=== PATIENT | female | born 1950 | race Caucasian/White ===

== ENCOUNTER → 2018-01-15 | Outpatient (CLI) | payer OTHER ==
[~2018-01-15] MED LIST: CETI10 PO
== END | disposition home or self-care (01) ==
LOC: PLD 11:05 → LAB SHORT 11:05
DX: D48.5 Neoplasm of uncertain behavior of skin (principal)
CPT/HCPCS: 88305

== ENCOUNTER 2018-06-20 16:30 | Emergency (ER) | payer OTHER ==
[~2018-06-20] VITALS: Ht 160 cm; Wt 104.3 kg
[2018-06-20 17:33] LABS: BASOPHILS ABSOLUTE AUTO 0.05 K/mm3 (0.00-0.23); BASOPHILS PERCENT AUTO 1 % (0-2); EOSINOPHILS PERCENT AUTO 2 % (0-6); Hematocrit 51.7 % (33.0-51.0); Hemoglobin 16.6 g/dL (11.5-16.0); IMMATURE GRAN ABSOLUTE AUTO 0.06 K/mm3 (0.00-0.10); IMMATURE GRAN PERCENT AUTO 1 % (0-1); LYMPHOCYTES ABSOLUTE AUTO 3.02 K/mm3 (0.84-5.20); LYMPHOCYTES PERCENT AUTO 29 % (21-46); MONOCYTES ABSOLUTE AUTO 0.61 K/mm3 (0.16-1.47); MONOCYTES PERCENT AUTO 6 % (4-13); Mean Corpuscular HGB 29.9 pg (26.0-34.0); Mean Corpuscular HGB Conc 32.1 g/dL (31.5-36.5); Mean Corpuscular Volume 93 fL (80-100); Mean Platelet Volume 8.9 fL (9.1-12.4); NEUTROPHILS ABSOLUTE AUTO 6.49 K/mm3 (1.96-9.15); NEUTROPHILS PERCENT AUTO 62 % (41-73); Platelet Count 245 K/mm3 (150-400); RDW Coefficient Variation 12.5 % (11.7-14.2); Red Blood Cell Count 5.56 M/mm3 (3.80-5.20); White Blood Cell Count 10.43 K/mm3 (4.00-11.30)
[2018-06-20] MEDS ORDERED: GABA400 PO (19:43)
[2018-06-20] MEDS ORDERED: Prozac20 MG (19:43)
[2018-06-20] MEDS ORDERED: CLON.2 PO (19:44)
[2018-06-20] MEDS ORDERED: METF500C PO (19:44)
[2018-06-20] MEDS ORDERED: LISI20 PO (19:44)
[2018-06-20] MEDS ORDERED: TAZTIA XT360 MG PO (19:44)
[2018-06-20] MEDS ORDERED: ALBU90OI6 INH (19:45)
[2018-06-20] MEDS ORDERED: EZET10 PO (19:45)
[2018-06-20] MEDS ORDERED: MODA200 PO (19:45)
[2018-06-20 20:20] LABS: Alanine Aminotransfer (ALT/SGP 31 U/L (12-78); Albumin, Blood 3.4 g/dL (3.4-5.0); Alk Phos 100 U/L (50-136); Anion Gap 8 mmol/L (6-16); Aspartate Aminotrans (AST/SGOT 17 U/L (12-37); Bilirubin, Total 0.4 mg/dL (0.1-1.0); Blood Urea Nitrogen 17 mg/dL (8-24); CO2, Blood 28 mmol/L (21-32); Calcium, Blood 9.5 mg/dL (8.5-10.1); Chloride, Blood 106 mmol/L (98-108); Creatinine, Blood 0.81 mg/dL (0.40-1.00); Globulin, Blood 3.5 g/dL (2.2-4.0); Glomerular Filtration Rate >60 (60-); Glucose, Blood 103 mg/dL (70-99); Sodium, Blood 142 mmol/L (136-145); Total Protein, Blood 6.9 g/dL (6.4-8.2)
[2018-06-20 20:27] LABS: Potassium, Blood 3.8 mmol/L (3.5-5.5)
== END 2018-06-20 20:56 | disposition home or self-care (01) ==
LOC: ER 16:30
PROVIDERS: Physician Assistant
DX: E87.5 Hyperkalemia (principal); D75.89 Other specified diseases of blood and blood-forming organs; Z79.899 Other long term (current) drug therapy; E11.9 Type 2 diabetes mellitus without complications; G35 Multiple sclerosis; Z85.3 Personal history of malignant neoplasm of breast; Z79.84 Long term (current) use of oral hypoglycemic drugs
CPT/HCPCS: 36415; 80053; 85025; 93005; 93010; 99283-25

== ENCOUNTER → 2021-07-04 | Outpatient (CLI) | payer OTHER ==
[~2021-07-04] MED LIST changes: +ALBU90OI6 INH; +CLON.2 PO; +EZET10 PO; +GABA400 PO; +LISI20 PO; +METF500C PO; +MODA200 PO; +Prozac20 MG; +TAZTIA XT360 MG PO
[2021-07-04 10:18] LABS: BASOPHILS ABSOLUTE AUTO 0.04 K/mm3 (0.00-0.23); BASOPHILS PERCENT AUTO 0 % (0-2); EOSINOPHILS ABSOLUTE AUTO 0.13 K/mm3 (0.00-0.68); EOSINOPHILS PERCENT AUTO 1 % (0-6); Hematocrit 51.2 % (33.0-51.0); Hemoglobin 16.8 g/dL (11.5-16.0); IMMATURE GRAN ABSOLUTE AUTO 0.05 K/mm3 (0.00-0.10); IMMATURE GRAN PERCENT AUTO 1 % (0-1); LYMPHOCYTES ABSOLUTE AUTO 1.98 K/mm3 (0.84-5.20); LYMPHOCYTES PERCENT AUTO 22 % (21-46); MONOCYTES ABSOLUTE AUTO 0.54 K/mm3 (0.16-1.47); MONOCYTES PERCENT AUTO 6 % (4-13); Mean Corpuscular HGB 29.4 pg (26.0-34.0); Mean Corpuscular HGB Conc 32.8 g/dL (31.5-36.5); Mean Corpuscular Volume 90 fL (80-100); Mean Platelet Volume 9.1 fL (9.1-12.4); NEUTROPHILS ABSOLUTE AUTO 6.31 K/mm3 (1.96-9.15); NEUTROPHILS PERCENT AUTO 70 % (41-73); Platelet Count 262 K/mm3 (150-400); RDW Coefficient Variation 13.8 % (11.7-14.2); RDW Standard Deviation 45.1 fL (35.1-46.3); Red Blood Cell Count 5.72 M/mm3 (3.80-5.20); White Blood Cell Count 9.05 K/mm3 (4.00-11.30)
[2021-07-04 10:38] LABS: Alanine Aminotransfer (ALT/SGP 16 U/L (12-78); Albumin, Blood 3.7 g/dL (3.4-5.0); Albumin/Globulin Ratio 1.2 (0.8-1.8); Alk Phos 89 U/L (40-126); Anion Gap 10 mmol/L (6-16); Aspartate Aminotrans (AST/SGOT 13 U/L (12-37); Bilirubin, Total 0.5 mg/dL (0.1-1.0); Blood Urea Nitrogen 17 mg/dL (8-24); Bun/Creatinine Ratio 20.2 (12.0-20.0); CO2, Blood 28 mmol/L (21-32); Calcium, Blood 10.2 mg/dL (8.5-10.1); Chloride, Blood 104 mmol/L (98-108); Creatinine, Blood 0.84 mg/dL (0.40-1.00); Globulin, Blood 3.2 g/dL (2.2-4.0); Glomerular Filtration Rate >60 (60-); Glucose, Blood 109 mg/dL (70-99); Potassium, Blood 4.1 mmol/L (3.5-5.5); Sodium, Blood 142 mmol/L (136-145); Thyroid Stimulating Hormone 1.886 uIU/mL (0.360-4.800); Total Protein, Blood 6.9 g/dL (6.4-8.2)
== END | disposition home or self-care (01) ==
LOC: LAB SHORT 10:11
PROVIDERS: Physician Assistant
DX: R53.83 Other fatigue (principal); R77.8 Other specified abnormalities of plasma proteins
CPT/HCPCS: 80053; 84443; 84484; 85025

== ENCOUNTER 2023-06-20 10:41 | Day surgery (SDC) | payer OTHER ==
[~2023-06-20] VITALS: Ht 160 cm; Wt 72.9 kg
[~2023-06-20 10:41] MED LIST changes: +ALBU90OI INH; -ALBU90OI6 INH; +Glucophage 850850 MG PO; -LISI20 PO; -METF500C PO; +Zestril40 MG PO
[2023-06-20] MEDS ORDERED: VITAMIN D31000 UNI1 PO (11:12)
[2023-06-20 12:11] VITALS: BP 163/103
[2023-06-25] MEDS ORDERED: ACET325 PO (10:11)
[2023-06-25] MEDS ORDERED: OYSTER SHELL C500 MG PO (10:14)
[2023-06-25] MEDS ORDERED: [UNRECOGNIZED DRUG - OTHER] PO (10:17)
[2023-06-25] MEDS ORDERED: [UNRECOGNIZED DRUG - OTHER] PO (10:19)
[2023-06-25] MEDS ORDERED: ASCO500 PO (10:24)
[2023-06-25] MEDS ORDERED: VITAMIN E100 UNI1 PO (10:25)
[2023-06-25] MEDS ORDERED: Milk Thistle175 M1 PO (10:25)
[2023-06-25] MEDS ORDERED: PROBIOTIC PO (10:29)
[2023-06-25] MEDS ORDERED: OMEGA-3-FISH O1 EAC3 PO (10:31)
[2023-06-25] MEDS ORDERED: CRANBERRY500 M1 PO (10:31)
== END 2023-06-20 12:45 | disposition home or self-care (01) ==
LOC: ORSCSDS 10:41
PROVIDERS: Ophthalmology
PROC: 08RJ3JZ Replacement of Right Lens with Synthetic Substitute, Percutaneous Approach (ICD-10-PCS; principal; 2023-06-20 12:00)
DX: E11.36 Type 2 diabetes mellitus with diabetic cataract (principal); H25.13 Age-related nuclear cataract, bilateral; J44.9 Chronic obstructive pulmonary disease, unspecified; F17.210 Nicotine dependence, cigarettes, uncomplicated; E78.5 Hyperlipidemia, unspecified; E78.00 Pure hypercholesterolemia, unspecified; Z79.84 Long term (current) use of oral hypoglycemic drugs; E11.22 Type 2 diabetes mellitus with diabetic chronic kidney disease; I12.9 Hypertensive chronic kidney disease with stage 1 through stage 4 chronic kidney disease, or unspecified chronic kidney disease; Z79.899 Other long term (current) drug therapy
CPT/HCPCS: 82947; J2250; J3010; J3301; J7040; V2632

== ENCOUNTER 2023-06-27 10:37 | Day surgery (SDC) | payer OTHER ==
[~2023-06-27] VITALS: Ht 160 cm; Wt 73.8 kg
[~2023-06-27 10:37] MED LIST changes: +ACET325 PO; +ASCO500 PO; +CRANBERRY500 M1 PO; +Milk Thistle175 M1 PO; +OMEGA-3-FISH O1 EAC3 PO; +OYSTER SHELL C500 MG PO; +PROBIOTIC PO; +VITAMIN D31000 UNI1 PO; +VITAMIN E100 UNI1 PO; +[UNRECOGNIZED DRUG - OTHER] PO; +[UNRECOGNIZED DRUG - OTHER] PO
--- NOTE | 2023-06-27 11:40 | NUR ---
06/27/23 1140 Cathi García PROCESTHER: 1133 TIM: 1134
--- NOTE | 2023-06-27 12:52 | NUR ---
06/27/23 1251 SABI GATES PT ADMIT TO SDU. DR. HERNANDEZ DISCUSSED PT VITALS WITH ME. STATES THAT O2 RUNS VERY LOW. 84-92%. STATES THAT PT CAN GO HOME WITH O2 SAT OF 82- 92% PT WAS PLACED ON 10L O2 VIA FACETENT. AFTER ENCOURAGEMENT OF COUGH, PT O2 FINALLY UP TO 95%. PT CURRENT BP IS 200/118. DR. HERNANDEZ SPOKE TO PT ABOUT BP. PT DENIES CHRISTENSEN. SHE DOES SEE FLOATERS BUT THEY ARE NOT NEW. DR. HERNANDEZ STATES THAT PT MAY BE RELEASED WITH BP THIS HIGH. I WILL ALSO SPEAK WITH DTR JOSE MANUEL ABOUT HER BP AND O2 SAT. PT DENIES O2 USE AT HOME. DENIES THAT HER PCP SCARLET LÓPEZ HAS EVER WANTED TO PLACE HER ON O2. PT DOES HAVE HX EMPHASEMIA. PT CONTINUES TO SMOKE. DR. HERNANDEZ HAS REQUESTED THAT I INSTRUCT HER ON THE USE OF INCENTIVE SPIROMOMETER AND GIVE HER A DUONEB TREATMENT. BP NOW 194/109. PT STATES THAT SHE DID TAKE HER BP MED THIS AM. DTR JOSE MANUEL BROUGHT IN AND I SPOKE TO HER ABOUT THE BP AND O2 SAT CONCERNS SHE HAS AGREED TO MAKE SURE HER MOM FOLLOWS UP WITH HER PCP. JOSE MANUEL STATES THAT SHE RECENTLY HAD AN ALLERGIC REACTION TO A LAUNDRY PRODUCT THAT WAS BROUGHT INTO THE HOUSE. SHE STATES THAT THEY DON'T NORMALLY TAKE HER BP BUT THAT IT DOESN'T RUN THIS HIGH. IT IS MOST LIKELY DUE TO THE "SURGERY" THAT HER BP IS ELEVATED. PT O2 SAT DROPPED TO 78% ON RA. PT WAS ON 4L PER NX
[2023-06-27 13:20] VITALS: BP 212/139
== END 2023-06-27 13:30 | disposition home or self-care (01) ==
LOC: ORSCSDS 10:37
PROVIDERS: Ophthalmology
PROC: 08RK3JZ Replacement of Left Lens with Synthetic Substitute, Percutaneous Approach (ICD-10-PCS; principal; 2023-06-27 12:00)
DX: E11.36 Type 2 diabetes mellitus with diabetic cataract (principal); H25.12 Age-related nuclear cataract, left eye; F17.210 Nicotine dependence, cigarettes, uncomplicated; G35 Multiple sclerosis; E78.5 Hyperlipidemia, unspecified; I12.9 Hypertensive chronic kidney disease with stage 1 through stage 4 chronic kidney disease, or unspecified chronic kidney disease; E11.22 Type 2 diabetes mellitus with diabetic chronic kidney disease; N18.9 Chronic kidney disease, unspecified; F43.10 Post-traumatic stress disorder, unspecified; Z79.899 Other long term (current) drug therapy
CPT/HCPCS: 82947; J2250; J3010; J3301; J7040; V2632

== ENCOUNTER 2023-07-02 03:46 | Inpatient (IN) | payer OTHER ==
[~2023-07-02] VITALS: Ht 157.5 cm; Wt 72.8 kg
[2023-07-02] VITALS (42 sets, daily range): BP systolic 122–205; BP diastolic 58–142
[2023-07-02] MEDS ORDERED: MODA200 PO (04:41)
[2023-07-02 04:43] LABS: BASOPHILS ABSOLUTE AUTO 0.07 K/mm3 (0.00-0.23); BASOPHILS PERCENT AUTO 1 % (0-2); EOSINOPHILS ABSOLUTE AUTO 0.06 K/mm3 (0.00-0.68); EOSINOPHILS PERCENT AUTO 0 % (0-6); Hematocrit 44.8 % (33.0-51.0); Hemoglobin 14.6 g/dL (11.5-16.0); IMMATURE GRAN ABSOLUTE AUTO 0.11 K/mm3 (0.00-0.10); IMMATURE GRAN PERCENT AUTO 1 % (0-1); LYMPHOCYTES ABSOLUTE AUTO 3.34 K/mm3 (0.84-5.20); LYMPHOCYTES PERCENT AUTO 22 % (21-46); MONOCYTES ABSOLUTE AUTO 0.89 K/mm3 (0.16-1.47); MONOCYTES PERCENT AUTO 6 % (4-13); Mean Corpuscular HGB 29.4 pg (26.0-34.0); Mean Corpuscular HGB Conc 32.6 g/dL (31.5-36.5); Mean Corpuscular Volume 90 fL (80-100); Mean Platelet Volume 9.1 fL (9.1-12.4); NEUTROPHILS ABSOLUTE AUTO 10.99 K/mm3 (1.96-9.15); NEUTROPHILS PERCENT AUTO 71 % (41-73); Platelet Count 345 K/mm3 (150-400); Red Blood Cell Count 4.97 M/mm3 (3.80-5.20); White Blood Cell Count 15.46 K/mm3 (4.00-11.30)
[2023-07-02 04:59] LABS: International Normalized Ratio 1.06; Prothrombin Time Results 11.1 Sec (9.7-11.5)
[2023-07-02 05:04] LABS: Base Excess Venous -0.6 mmol/L; Bicarbonate Venous 23.2 mmol/L (24.0-30.0); PCO2 Venous 51.7 mmHg (38-42); pH Blood Venous 7.31 (7.34-7.37)
[2023-07-02 05:19] LABS: Albumin, Blood 3.3 g/dL (3.4-5.0); Albumin/Globulin Ratio 0.9 (0.8-1.8); Bun/Creatinine Ratio 27.7 (12.0-20.0); Calcium, Blood 9.3 mg/dL (8.5-10.1); Creatinine, Blood 0.58 mg/dL (0.40-1.00); Globulin, Blood 3.8 g/dL (2.2-4.0); Magnesium, Blood 1.7 mg/dL (1.6-2.4); Phosphorus, Blood 3.5 mg/dL (2.5-4.9); Potassium, Blood 4.4 mmol/L (3.5-5.5); Total Protein, Blood 7.1 g/dL (6.4-8.2)
[2023-07-02 05:22] LABS: SARS-Cov-2 (COVID-19) PCR, MMC NEGATIVE (NEGATIVE)
[2023-07-02 05:24] LABS: Influenza A Negative (NEGATIVE); Influenza B Negative (NEGATIVE)
--- NOTE | 2023-07-02 11:00 | NUR ---
PT ADMITTED TO ICU 8 AT 0925. PT IS DROWSY BUT NODS YES OR NO TO QUESTIONS. ON BIPAP 12/6 FIO2 70% ON ARRIVAL. TITRATED DOWN TO 8/6 FIO2 45% AFTER PT GOT SETTLED IN TO BED. PT INCONTINENT OF STOOL AND URINE ON ARRIVAL. CLEANED UP AND NEW PUREWICK PLACED. NITRO GTT WAS TURNED OFF IN ER. PT STARTED TO GET AGITATED AND PULLING BIPAP MASK OFF. GAVE ONE DOSE OF 0.5MG ATIVAN AND PT IS NOW RESTING QUIETLY ON BIPAP. LS CRACKLES WITH WHEEZING AND BILAT FEET 3+ EDEMA. PT GOT A DOSE OF LASIX IN ER. DAUGHTER AT BEDSIDE.
[2023-07-02 17:12] LABS: Source, Urine Foley catheter
[2023-07-02 17:20] LABS: Appearance, Urine Hazy (Clear); Bilirubin, Urine Neg (Neg); Blood, Urine 3+ (Neg); Color, Urine Yellow (P-Yellow); Glucose Qualitative, Urine Neg (Neg); Ketones, Urine Neg (Neg); Leukocyte Esterase, Urine 2+ (Neg); Nitrite, Urine Neg (Neg); Protein, Urine 3+ (Neg); Urobilinogen, Urine 1+ (Normal)
[2023-07-02 17:27] LABS: White Blood Cells, Urine 25-50 /hpf (0-5)
[2023-07-02 17:28] LABS: Bacteria Few /hpf; Squamous Epithelial Cells Few /hpf (Few)
[2023-07-02 17:29] LABS: Amorphous Light (0-Heavy)
--- NOTE | 2023-07-02 18:37 | NUR ---
SUMMARY PT RESTING ON BIPAP. ABLE TO NOD YES OR NO TO QUESTIONS APPROPRIATELY. GETS ANXIOUS AT TIMES AND PULLS AT LEADS AND BIPAP. ATIVAN GIVEN AND WORKED WELL. WENT DOWN FOR CT SCAN OF HEAD. PT WAS INCONTINENT ON ARRIVAL TO ICU BUT WAS UNABLE TO VOID AFTER THAT, BLADDER SCAN SHOWED 560ML, DUNLAP PLACED PER DR. BENITEZ. HYPERTENSIVE AT TIMES, HYDRALAZINE GIVEN. FAMILY AT BEDSIDE. NO SIGN OF DISTRESS.
--- NOTE | 2023-07-02 22:21 | NUR ---
ASSUMED CARE CARE WAS ASSUME OF PT AT 1900, REPORT GIVEN BY GUIDO CALVIN. PT A/O X3, DIFFICULT TO UNDERSTAND D/T BIPAP AND SOB. PT ABLE TO FOLLOW COMMANDS, WEAKLY MOVES ALL 4 EXTREMITIES. PT HAS HX OF MS. PT OCCASIONALLY PULLING AT BIPAP AND CARDIAC MONITORING LEADS. PT ON BIPAP,01/29, FiO2 40% WITH BACKUP RATE OF 12. PT TACHYPNEIC WITH SHALLOW RESPIRATIONS, O2 SATS > 95%. PT HAS OCCASIONAL NON-PRODUCTIVE WET COUGH. CARDIAC MONITORING REFLECTED BIGEMINAL PVCs AT BEGINNING OF SHIFT, HR 110s. SINUS TACH AT THIS TIME WITH OCCASIONALY PVCs. PT'S BP STEADILY INCREASING AND HYPERTENSIVE, SBP 200s. NOTIFIED DR. BENITEZ AND STARTED NITRO GTT ON PT'S EMAR, SEE FLOWSHEET. PT TOLERATING WELL, GTT INFUSING FOR MAP GOAL 70-100. D/T PT'S O2 REQUIREMENTS, PT NPO AT THIS TIME AND NOT GIVEN PO MEDICATIONS, DR. BENITEZ AWARE. DUNLAP PATENT AND DRAINING TO GRAVITY. PROTECTIVE BOOT'S PLACED ON PT'S FEET FOR HEEL PROTECTION.
[2023-07-03] VITALS (99 sets, daily range): BP systolic 111–186; BP diastolic 54–141
[2023-07-03 02:57] LABS: BASOPHILS ABSOLUTE AUTO 0.03 K/mm3 (0.00-0.23); BASOPHILS PERCENT AUTO 0 % (0-2); EOSINOPHILS PERCENT AUTO 0 % (0-6); Hematocrit 38.7 % (33.0-51.0); IMMATURE GRAN ABSOLUTE AUTO 0.16 K/mm3 (0.00-0.10); IMMATURE GRAN PERCENT AUTO 1 % (0-1); LYMPHOCYTES ABSOLUTE AUTO 1.27 K/mm3 (0.84-5.20); LYMPHOCYTES PERCENT AUTO 10 % (21-46); MONOCYTES PERCENT AUTO 6 % (4-13); Mean Corpuscular HGB 29.7 pg (26.0-34.0); Mean Corpuscular HGB Conc 33.6 g/dL (31.5-36.5); Mean Corpuscular Volume 89 fL (80-100); Mean Platelet Volume 8.7 fL (9.1-12.4); NEUTROPHILS ABSOLUTE AUTO 10.79 K/mm3 (1.96-9.15); NEUTROPHILS PERCENT AUTO 83 % (41-73); Platelet Count 267 K/mm3 (150-400); RDW Coefficient Variation 13.8 % (11.7-14.2); RDW Standard Deviation 44.8 fL (35.1-46.3); Red Blood Cell Count 4.37 M/mm3 (3.80-5.20); White Blood Cell Count 13.05 K/mm3 (4.00-11.30)
[2023-07-03 04:06] LABS: Albumin, Blood 2.9 g/dL (3.4-5.0); Albumin/Globulin Ratio 0.9 (0.8-1.8); Bilirubin, Total 0.6 mg/dL (0.1-1.0); Bun/Creatinine Ratio 29.4 (12.0-20.0); Calcium, Blood 8.7 mg/dL (8.5-10.1); Creatinine, Blood 0.72 mg/dL (0.40-1.00); Globulin, Blood 3.3 g/dL (2.2-4.0); Magnesium, Blood 1.4 mg/dL (1.6-2.4); Potassium, Blood 3.7 mmol/L (3.5-5.5); Total Protein, Blood 6.2 g/dL (6.4-8.2)
--- NOTE | 2023-07-03 06:28 | NUR ---
SHIFT SUMMARY PT REMAINS A/O X3. PT ABLE TO ANSWER QUESTIONS APPROPRIATELY, DIFFICULT TO UNDERSTAND AT TIMES D/T BIPAP AND SOB. PT BEGINNING TO READJUST BIPAP MORE FREQUENTLY, REQUIRING MORE FREQUENT ASSISTANCE. BIPAP SETTINGS 01/29, Fi02 40% WITH BACKUP RATE OF 12. O2 SATS > 95%. CARDIAC MONITORING REFLECTS SINUS TACH WITH VENTRICULAR BIGEMINY. HR 110s. SBP HYPERTENSIVE, NITROGLYCERIN GTT INFUSING, SEE PREVIOUS NURSE NOTE. SEE FLOWSHEET FOR TITRATIONS. PIV TO R AC BEGINNING TO LEAK, NEW IV PLACEMENT ATTEMPTED BUT UNSUCCESSFUL. MAG REPLACEMENT INFUSING. KCL TO BE STARTED ONCE MAG INFUSION IS COMPLETED.
[2023-07-03 07:12] LABS: Anti-Xa UFH, PHA Monitoring <0.10 IU/mL; International Normalized Ratio 1.11; Prothrombin Time Results 11.6 Sec (9.7-11.5)
--- NOTE | 2023-07-03 14:14 | NUR ---
PROVIDER PHONE CALL: Kera Garzon and [facility] called regarding continued hypertension. RN instructed to reduce nitro to 150 mcg/min and start esmolol drip.
[2023-07-03 15:24] LABS: Magnesium, Blood 1.6 mg/dL (1.6-2.4)
[2023-07-03 15:26] LABS: Potassium, Blood 3.6 mmol/L (3.5-5.5); Thyroid Stimulating Hormone 1.76 uIU/mL (0.360-4.800)
--- NOTE | 2023-07-03 15:26 | NUR ---
BIPAP: Pt declines to wear her BIPAP after several attempts. RN educated pt on purpose for BIPAP and directions from cardiology. RN offered pt's ativan to help with anxiety, however pt declined as well.
[2023-07-03] MEDS ORDERED: KETO.5OPSO BOTHEYES (15:53)
[2023-07-03] MEDS ORDERED: Floxin10 ML BOTHEYES (15:55)
[2023-07-03] MEDS ORDERED: PRED FORTE5 ML BOTHEYES (15:55)
--- NOTE | 2023-07-03 18:33 | NUR ---
SHIFT SUMMARY: PT currently sitting upright with 5L NC in place, visiting with family. She was cleared by ST this afternoon after failing her initial bedside swallow this AM. Nitroglycerin order changed to adjust max dose and esmolol was started. Power glide and PIV started in RUE. LUE IVs discontinued as pt reports hx of mastectomy with lymph node removal. Pt struggles to tolerate BIPAP and declines to wear it with family in room. She states, "This might be the last time I get to talk to them."
--- NOTE | 2023-07-03 19:00 | NUR ---
ASSUMED CARE AT 1899 BEDSIDE REPORT GIVEN BY DAY RN. PT AWAKE AND ALERT SITTING UPRIGHT IN BED, VSS ON 5L NC. DAUGHTER AT BEDSIDE. INFUSIONS DOUBLE CHECKED WITH DAY RN. NO VOICED CONCERNS BY PATIENT OR FAMILY AT THIS TIME, CALL WOOD IN REACH. 1929- ASSISTED WITH DINNER. SET UP IN BED.
[2023-07-04] VITALS (68 sets, daily range): BP systolic 117–175; BP diastolic 75–111
--- NOTE | 2023-07-04 00:27 | NUR ---
RESPIRATORY PT CONTINUES TO TAKE BIPAP OFF. DOES NOT WANT TO KEEP IT ON, STATES "I FEEL STRANGLED", VERBAL SUPPORT PROVIDED AND EDUCATION PROVIDED. ATIVAN OFFERED PT DENIED. 5L NC PUT BACK ON. RT MADE AWARE.
--- NOTE | 2023-07-04 03:31 | NUR ---
[facility]-BP TITRATION IN ESMOLOL NOT EFFECTIVE TO KEEP SBP WITHIN PARAMETERS [id number]. SBP SUSTAINED OVER 170. HYDRALALZINE GIVEN PRN PER EMAR. POST HYDRALAZINE [id number].
[2023-07-04 03:47] LABS: BASOPHILS ABSOLUTE AUTO 0.01 K/mm3 (0.00-0.23); BASOPHILS PERCENT AUTO 0 % (0-2); EOSINOPHILS PERCENT AUTO 0 % (0-6); Hematocrit 35.2 % (33.0-51.0); Hemoglobin 11.9 g/dL (11.5-16.0); IMMATURE GRAN ABSOLUTE AUTO 0.07 K/mm3 (0.00-0.10); IMMATURE GRAN PERCENT AUTO 1 % (0-1); LYMPHOCYTES ABSOLUTE AUTO 0.68 K/mm3 (0.84-5.20); LYMPHOCYTES PERCENT AUTO 6 % (21-46); MONOCYTES ABSOLUTE AUTO 0.33 K/mm3 (0.16-1.47); MONOCYTES PERCENT AUTO 3 % (4-13); Mean Corpuscular HGB 29.5 pg (26.0-34.0); Mean Corpuscular HGB Conc 33.8 g/dL (31.5-36.5); Mean Corpuscular Volume 87 fL (80-100); Mean Platelet Volume 8.9 fL (9.1-12.4); NEUTROPHILS ABSOLUTE AUTO 9.61 K/mm3 (1.96-9.15); NEUTROPHILS PERCENT AUTO 90 % (41-73); Platelet Count 250 K/mm3 (150-400); RDW Coefficient Variation 13.5 % (11.7-14.2); RDW Standard Deviation 43.1 fL (35.1-46.3); Red Blood Cell Count 4.04 M/mm3 (3.80-5.20)
[2023-07-04 04:05] LABS: Albumin, Blood 2.6 g/dL (3.4-5.0); Anion Gap 6 mmol/L (6-16); Blood Urea Nitrogen 16 mg/dL (8-24); Bun/Creatinine Ratio 22.1 (12.0-20.0); CO2, Blood 32 mmol/L (21-32); Calcium, Blood 8.1 mg/dL (8.5-10.1); Chloride, Blood 91 mmol/L (98-108); Creatinine, Blood 0.73 mg/dL (0.40-1.00); Glomerular Filtration Rate 87 (60-); Glucose, Blood 166 mg/dL (70-99); Magnesium, Blood 1.7 mg/dL (1.6-2.4); Phosphorus, Blood 2.7 mg/dL (2.5-4.9); Potassium, Blood 3.5 mmol/L (3.5-5.5); Sodium, Blood 129 mmol/L (136-145)
--- NOTE | 2023-07-04 06:49 | NUR ---
SUMMARY ALERT AND ORIENTED X4. SLEPT OFF/ON THROUGHOUT NIGHT. TRIED BIPAP 10/5 30%, TOLERATED FOR APPROX 40MIN. ON NC5L. REMAINS IN NSR 90S. ON NITRO INFUSION AND ESMOLOL INFUSION. REQUIRED PRN HYDRALAZINE AND AN INCREASE IN ESMOLOL TWICE TO MAINTAIN SBP IN PARAMETERS. DR. LOUIE BY TO ASSESS PT THIS MORNING, SEE NEW ORDERS. K AND MG REPLACED. HAS DUNLAP INSITU, DRAINING ADEQUATELY. NO VOICED CONCERNS BY PT AT THIS TIME. CALL WOOD IN REACH.
--- NOTE | 2023-07-04 07:40 | NUR ---
ASSUME CARE: I have assumed care of this patient.
--- NOTE | 2023-07-04 10:07 | NUR ---
IV INFILTRATION: Upon reassessment, left forearm IV infiltrated with levofloxacin infusing. Pharmacy called, cold pack recommended. IV will be discontinued SAI.
--- NOTE | 2023-07-04 12:13 | NUR ---
MET WITH BEDSIDE RN, AND DR. BENITEZ. PT WAS ALERT, BUT HAD A FLAT AFFECT. PT WANTED TO GET OUT OF THE CHAIR AND INTO BED. ASSISTED STAFF TO MOVE PATIENT AND PROVIDE WARM BLANKETS AND FRESH LINENS ON THE BED. PATIENT BECAME NAUSIOUS AND BEGAN VOMITING. DR. BENITEZ ARRIVED AND ORDERED ADDITIONAL NAUSEA MEDICATION. PATIENTS DAUGHTER AND GRANDDAUGHER ARRIVED. JOSE MANUEL SANCHEZ, DISCUSSED WITH DR. BENITEZ THE PROGNOSIS OF ERENDIRA. ERENDIRA HAS BEEN HAVING MEANINGFUL INTERACTIONS WITH FAMILY, GIVING THEM INSTRUCTIONS ABOUT WHERE SHE WANTS HER ASHES SPREAD, PERSONAL ITEMS TO BE GIVEN TO WHICH FAMILY MEMBERS. PATIENT AND HER FAMILY ARE AT AN UNDERSTANDING THAT SHE IS PREPARING TO PASS. FAMILY IS GOING TO HAVE A MEETING THIS EVENING AND MAKE A DECISION ABOUT COMFORT CARE, WE WILL NOT DO ANYTHING TO ESCLIATE CARE AT THIS TIME. DR. BENITEZ ENCOURAGED THAT THE MEETING MAY NEED TO TAKE PLACE SOONER RATHER THAN LATER. HE ALSO DISCUSSED THAT THE PATIENT MAY NOT SURVIVE TRANSPORT HOME. BEFORE I LEFT I MADE SURE THAT ERENDIRA WAS COMFORTABLE. SHE WAS SLEEPING OFF AND ON AND REPORTED RELIEF FROM HER NAUSEA.
--- NOTE | 2023-07-04 14:10 | NUR ---
UPDATE: Pt getting increasingly confused. She has pulled her NC off several times. When RN attempts to replace tubing, pt stops RN with her hands. Dr Brower notified; pt will not be forced to wear NC. Family has verbalized intention to transition to comfort care this afternoon once whole family is present. Pt's daughter was updated and verbalizes agreement with plan.
--- NOTE | 2023-07-04 14:15 | NUR ---
"Spiritual Care Visit(s) | Comfort Care Pt. is awake in bed but is not responsive. Son is at bedside and welcomes my visit. Pt. responded non-verbally when I introduced myself as a braider setter. Facilitated a life review with the son, and prayed with them both in the room. This machine chocolate molder then went to see family in the ICU lounge. Met with Pts. daughter. Pastoral care is given as family verbalizes some of their grief. When the duaghter began to ask questions about what she needed to do, EOL education was given. Daughter chooses [facility] for their home. This Roofer Metal relayed info to the charge nurse and will remain available to the Pt. and family."
--- NOTE | 2023-07-04 19:24 | NUR ---
ASSUMED CARE OF PT AT 1905 PT RESTING IN BED WITH MANY FAMILY AND FRIENDS AT BEDSIDE DURING SHIFT REPORT. PT COMFORT CARE WITH MONITOR ALRAMS OFF AT THIS TIME.
--- NOTE | 2023-07-05 05:49 | NUR ---
END OF SHIFT SUMMARY PT FAMILY AT BEDSIDE ALL SHIFT. PT COMFORT ACHIEVED PER EMAR MEDICATIONS. PT DOES NOT LIKE TO BE MOVED AT ALL. FAMILY STATED THAT SHE IS OK AND DOES NOT NEED TO BE REPOSITIONED THROUGHOUT SHIFT. THIS RN REPOSITIONED ONCE DUE TO BROKEN BED, NOT INFLATING. CONTINUED COMFORT CARE AT THIS TIME.
--- NOTE | 2023-07-05 07:15 | NUR ---
ASSUMPTION OF CARE: PATIENT RESTING COMFORTABLY IN BED. FACE IS WITHOUT GRIMACE OR FURROWING. LIMBS ARE STILL. BREATHING IS EVEN AND REGULAR. PATIENT CONTINUES ON RA. PATIENT IS PALE WITH SOME DUSKY COLORS AROUND MOUTH AND CHEEKS. FAMILY SLEEPING AT BEDSIDE. DUNLAP IN PLACE AND DRAINING FREELY.
--- NOTE | 2023-07-05 10:38 | NUR ---
"Spiritual Care Visit(s) | Comfort care Rounded on the Pt. and family with Shiva Flores. Pt. is on comfort care and is mostly non responsive. Pts. daughter Georgia verbalizes a long list of family stressors that have been present in the past year. Shiva and I listen with empathy and a calming presence. Family verbalized that the Pts. bed has malfunctioned, but they woudl rather leave the Pt. resting as she is without disturbing her. Family verbalized gratitude for the spiritual care visit prior to Shiva exiting. Prayed with family and Pt. and will remain available to family throughout the day. Family again verbalized gratitude for the spiritual care visits."
--- NOTE | 2023-07-05 18:29 | NUR ---
SHIFT SUMMARY: PATIENT MONITORED FOR AND TREATED FOR PAIN AND DISCOMFORT. PATIENT RECEIVED ROXANOL 20 MG MULTIPLE TIMES DURING THE DAY. THIS WAS SUCCESSFUL IN KEEPING THE PATIENT COMFORTABLE AND FREE FROM AIR HUNGER. PATIENT'S RR 8-15 BREATHS/MIN DURING THE SHIFT. RATE CONTINUED TO BE EVEN. PATIENT IS PALE AND DUSKY. FAMILY AT BEDSIDE THROUGHOUT THE DAY. THEY ARE SUPPORTIVE OF THE PATIENT AND WORK WITH STAFF TO KEEP PATIENT COMFORTABLE. THROUGHOUT THE SHIFT, THEY DECLINED NEED FOR ADL INTERVENTIONS FOR THE PATIENT.
--- NOTE | 2023-07-05 19:20 | NUR ---
ASSUMED CARE RECEIVED INTO CARE AT 1900 REPORT GIVEN BY DAY RN. FAMILY AT BEDSIDE. PT LYING IN BED WITH EYES CLOSES, RESPS 7-8 SNOROUS AT TIMES, DOES NOT APPEAR TO BE AIR HUNGRY. FAMILY STATES NOT TO REPOSITION DUE TO IT CAUSING TOO MUCH PAIN/DISCOMFORT FOR PT. FAMILY STATES PT APPEARS COMFORTABLE AT THIS TIME. WATER PROVIDED FOR FAMILY. NO VOICED CONCERNS AT THIS TIME.
--- NOTE | 2023-07-06 06:05 | NUR ---
SHIFT SUMMARY PT RESPONDED TO PHYSICAL STIMULI AT TIMES THROUGHOUT THE NIGHT. ANALGESIC GIVEN PER AUG. HAS BEEN CLAMMY, DUSKY/PALE. HEART RATE REMAINED 65-70, RR 6-8, NOT AIR HUNGRY, SNOROUS RESPS AT TIMES. FAMILY STAYED THE NIGHT AND NOTIFIED RN IF THEY FELT PATIENT WAS UNCOMFORTABLE. ALL REPOSITIONING DECLINED BY FAMILY IT CAUSES THE PATIENT HIP PAINS. DUNLAP INSITU DRAINING TO GRAVITY. NO VOICED CONCERNS AT THIS TIME BY FAMILY. PT APPEARS COMFORTABLE IN NO DISTRESS.
--- NOTE | 2023-07-06 06:59 | NUR ---
BED TRANSFER REPORT GIVEN TO NURSE CONTEH ON MEDICAL FLOOR. PT TRASNFERRED BY BED TO ROOM 343, FAMILY AT BEDSIDE.
--- NOTE | 2023-07-06 07:26 | NUR ---
I ASSUMED CARE OF PT TRANSFERRED FROM ICU 08 @ 0650. PT HAD ALL BELONGININGS WITH THEM AND FAMILY @ BEDSIDE. PT HANDED OFF TO DAY RN AFTER MORNING CHANGE OF SHIFT BEDSIDE REPORT. PT HAS DUNLAP IN PLACE DRAINING TO GRAVITY AND PG IN JERONIMO.
--- NOTE | 2023-07-06 14:44 | NUR ---
LATE ENTRY 1300: PTS FAMILY CALLED RN TO ROOM. PT APPEARS TO HAVE . 2ND RN TO ROOM FOR CONFIRMATION. TOD CALLED AT 1302. CALL PLACED TO DR. BENITEZ AT 1312, NOTIFIED & AWARE OF TOD. [employer]OR NETWORK NOTIFIED. FAMILY REMAINS IN THE ROOM.
--- NOTE | 2023-07-06 14:47 | NUR ---
PALLIATIVE CARE NURSE HERE TO SEE FAMILY AND OFFER CONDOLENCES & SUPPORT.
--- NOTE | 2023-07-06 17:18 | NUR ---
1715 [facility] REP GHASSAN TOTH HERE TO MEDICATION AID PT. FAMILY HERE AND REMAINS IN THE ROOM. FAMILY MEMBERS ARE TEARY EYED AND CONSOLING EACH OTHER.
== END 2023-07-06 13:02 | DRG 871 ==
LOC: ER 03:46 → ICUE 06:10 → MEDS 07-06 06:48
PROVIDERS: Emergency Medicine; Family Medicine; Internal Medicine Cardiovascular Disease; ADMIT Internal Medicine
PROC: 0T9B70Z Drainage of Bladder with Drainage Device, Via Natural or Artificial Opening (ICD-10-PCS; principal; 2023-07-02)
PROC: 5A09457 Assistance with Respiratory Ventilation, 24-96 Consecutive Hours, Continuous Positive Airway Pressure (ICD-10-PCS; 2023-07-02)
PROC: 3E03329 Introduction of Other Anti-infective into Peripheral Vein, Percutaneous Approach (ICD-10-PCS; 2023-07-02)
DX: A41.9 Sepsis, unspecified organism (principal); G93.41 Metabolic encephalopathy; I50.23 Acute on chronic systolic (congestive) heart failure; J18.9 Pneumonia, unspecified organism; J96.01 Acute respiratory failure with hypoxia; I21.4 Non-ST elevation (NSTEMI) myocardial infarction; J44.0 Chronic obstructive pulmonary disease with (acute) lower respiratory infection; J44.1 Chronic obstructive pulmonary disease with (acute) exacerbation; I13.0 Hypertensive heart and chronic kidney disease with heart failure and stage 1 through stage 4 chronic kidney disease, or unspecified chronic kidney disease; I47.10 Supraventricular tachycardia, unspecified; I16.1 Hypertensive emergency; R65.20 Severe sepsis without septic shock; R77.9 Abnormality of plasma protein, unspecified; G35 Multiple sclerosis; E11.22 Type 2 diabetes mellitus with diabetic chronic kidney disease; N18.9 Chronic kidney disease, unspecified; Z66 Do not resuscitate; Z51.5 Encounter for palliative care; I27.20 Pulmonary hypertension, unspecified; I25.10 Atherosclerotic heart disease of native coronary artery without angina pectoris; I35.0 Nonrheumatic aortic (valve) stenosis; E87.6 Hypokalemia; J43.9 Emphysema, unspecified; E83.42 Hypomagnesemia; H91.8X2 Other specified hearing loss, left ear; E78.5 Hyperlipidemia, unspecified; I16.0 Hypertensive urgency; E83.51 Hypocalcemia; Z85.3 Personal history of malignant neoplasm of breast; Z90.11 Acquired absence of right breast and nipple; Z92.3 Personal history of irradiation; F17.210 Nicotine dependence, cigarettes, uncomplicated; Z11.52 Encounter for screening for COVID-19; Z88.0 Allergy status to penicillin; Z88.2 Allergy status to sulfonamides; Z88.5 Allergy status to narcotic agent; Z88.8 Allergy status to other drugs, medicaments and biological substances; Z79.899 Other long term (current) drug therapy; Z79.84 Long term (current) use of oral hypoglycemic drugs; Z79.811 Long term (current) use of aromatase inhibitors; Z90.710 Acquired absence of both cervix and uterus; Z90.89 Acquired absence of other organs; Z98.890 Other specified postprocedural states
CPT/HCPCS: 31720; 36415; 51702; 70450; 71045; 80053; 80069; 81001; 82330; 82803; 82947; 83605; 83735; 83880; 84100; 84132; 84145; 84443; 84484; 85025; 85520; 85610; 85730; 87040; 87804; 87807; 92526; 92610; 93005; 93010; 93306; 94640; 94660; 94664; 94762; 96365; 96366; 96367; 96368; 96372-59; 96375; 99285-25; A9270; C1751; J0360; J0456; J0696; J1644; J1790; J1940; J1956; J2060; J2250; J2270; J2405; J2765; J2930; J3475; J3480; J7050; U0002